=== PATIENT | female | born 1970 | race Caucasian/White ===

== ENCOUNTER 2023-06-14 11:25 | Inpatient (IN) | payer OTHER ==
[~2023-06-14] VITALS: Ht 170.2 cm; Wt 81.6 kg
[2023-06-14 11:29] VITALS: BP 156/95; PULSE 110; RESP 18; TEMP 103; O2SAT 98
[2023-06-14 12:08] LABS: EOSINOPHILS # (AUTO) 0.1 K/uL (0-0.4); EOSINOPHILS % (AUTO) 0.6 % (0.0-4.0); HEMATOCRIT 38.4 % (36-48); HEMOGLOBIN 13.1 g/dL (12.0-16.0); LYMPHOCYTES % (AUTO) 8.7 % (20.5-51.1); MEAN CORPUSCULAR HEMOGLOBIN 29 pg (27-31); MEAN CORPUSCULAR HGB CONC 34 g/dL (33-37); MONOCYTES # (AUTO) 0.1 K/uL (0.8-1.0); MONOCYTES % (AUTO) 1.3 % (1.7-9.3); NEUTROPHILS % (AUTO) 89.4 % (42.2-75.2); PLATELET COUNT (AUTO) 178 K/uL (140-450); RED BLOOD CELL COUNT(AUTO) 4.52 MIL/uL (4.20-5.40); RED CELL DISTRIBUTION WIDTH 14.2 % (11.6-13.7); WHITE BLOOD COUNT (AUTO) 11.2 K/uL (4.8-10.8)
[2023-06-14 12:08] LABS: BILIRUBIN,URINE NEGATIVE (NEGATIVE); BLOOD, URINE 3+ (NEGATIVE); COLOR,URINE YELLOW (YELLOW); LEUKOCYTE ESTERASE ,URINE 1+ (NEGATIVE); NITRITE, URINE POSITIVE (NEGATIVE); PH,URINE 7.5 (5.0-9.0); PROTEIN,URINE 3+ (NEGATIVE); UGLUCOSE TRACE (NEGATIVE)
[2023-06-14] MEDS ORDERED: cefTRIAXone 1,000 MG VIAL ONE ×2 (12:16→12:23)
[2023-06-14 12:25] LABS: ALBUMIN 3.7 g/dL (3.4-5.0); ANION GAP 13.8 (8-16); CALCIUM 8.5 mg/dL (8.5-10.1); CREATININE 1.1 mg/dL (0.6-1.3); POTASSIUM 3.8 mmol/L (3.5-5.1); TOTAL BILIRUBIN 0.7 mg/dL (0.0-1.0); TOTAL PROTEIN, SERUM 8.9 g/dL (6.4-8.2)
[2023-06-14 12:32] LABS: LACTIC ACID 2.1 mmol/L (0.4-2.0)
[2023-06-14] MEDS: KETOROLAC 30 MG/ML VIAL IVP ONE (12:40)
[2023-06-14] MEDS: NACL 0.9% 2,000 ML IV ONE (12:43)
[2023-06-14 12:57] VITALS: O2SAT 98
[2023-06-14 13:30] LABS: RBC,URINE 20-50 /HPF (0-5); WBC,URINE 60-80 /HPF (0-5)
[2023-06-14 13:31] LABS: APPEARANCE,URINE HAZY (CLEAR); BACTERIA,URINE 1+ /HPF (None Seen); SQUAMOUS EPITHELIAL CELL,UR 0-3 (FEW) /LPF (0-3 (FEW))
[2023-06-14] MEDS ORDERED: LEVO0.179 PO (14:53)
[2023-06-14 19:46] VITALS: O2SAT 98
[2023-06-14] MEDS ORDERED: ACETAMINOPHEN 325 MG TAB PO PRN (21:40)
[2023-06-14] MEDS ORDERED: HYDROcodone/APAP 5/325 MG 1 TAB TAB PO PRN (21:40)
[2023-06-14] MEDS ORDERED: ONDANSETRON 4 MG/2 ML VIAL IVP PRN (21:40)
[2023-06-15] MEDS: MORPHINE SULFATE 2 MG/ML SYR IVP PRN (03:55)
[2023-06-15 06:07] VITALS: O2SAT 97
[2023-06-15 07:08] LABS: BASOPHILS % (AUTO) 0.2 % (0.0-2.0); EOSINOPHILS # (AUTO) 0.2 K/uL (0-0.4); EOSINOPHILS % (AUTO) 1.6 % (0.0-4.0); HEMATOCRIT 35.6 % (36-48); LYMPHOCYTES # (AUTO) 2.4 K/uL (2.5-16.5); MEAN CORPUSCULAR HEMOGLOBIN 29 pg (27-31); MEAN CORPUSCULAR HGB CONC 34 g/dL (33-37); MEAN CORPUSCULAR VOLUME 86.1 fL (80-94); MONOCYTES # (AUTO) 1.1 K/uL (0.8-1.0); MONOCYTES % (AUTO) 9.7 % (1.7-9.3); NEUTROPHILS # (AUTO) 7.2 K/uL (1.8-7.7); NEUTROPHILS % (AUTO) 66.5 % (42.2-75.2); PLATELET COUNT (AUTO) 162 K/uL (140-450); RED BLOOD CELL COUNT(AUTO) 4.14 MIL/uL (4.20-5.40); RED CELL DISTRIBUTION WIDTH 14.5 % (11.6-13.7); WHITE BLOOD COUNT (AUTO) 10.8 K/uL (4.8-10.8)
[2023-06-15 08:00] VITALS: BP 133/75; PULSE 66; RESP 18; TEMP 98.1; O2SAT 97
[2023-06-15 10:22] LABS: FREE T4 (FREE THYROXINE) 0.83 ng/dL (0.76-1.46); THYROID STIMULATING HORMONE 90.51 uIU/mL (0.34-3.74)
[2023-06-15 11:25] VITALS: O2SAT 97
[2023-06-15 16:00] VITALS: BP 172/94; PULSE 76; RESP 18; TEMP 98.1; O2SAT 97
[2023-06-15] MEDS ORDERED: CIPR500T4 PO (16:50)
[2023-06-15 17:30] VITALS: BP 172/94; PULSE 76; RESP 18; TEMP 98.1
[2023-06-16] MEDS ORDERED: LEVOTHYROXINE 0.112 MG TAB PO SCH (06:30)
[2023-06-16] MEDS ORDERED: LEVOTHYROXINE 0.1 MG, LEVOTHYROXINE 0.075 MG PO SCH (06:30)
== END 2023-06-15 17:45 | disposition home or self-care (01) | DRG 720 ==
LOC: MED 11:25 → MMU 21:40 → MTU 06-15 05:50
PROVIDERS: ADMIT Family Medicine; ATTEND Family Medicine
DX: A41.9 Sepsis, unspecified organism (principal); E03.9 Hypothyroidism, unspecified; E11.9 Type 2 diabetes mellitus without complications; I10 Essential (primary) hypertension; N10 Acute pyelonephritis; Z79.899 Other long term (current) drug therapy
CPT/HCPCS: 36415; 80053; 81001; 83036; 83605; 84439; 84443; 85025; 87040; 87081; 87086; 93005; 96361; 96365; 96375; 99285; J0696; J1885; J2270; J7060; Q0092